=== PATIENT | male | born 1995 | race Caucasian/White ===

== ENCOUNTER → 2017-05-26 11:35 | Outpatient (CLI) | payer OTHER, SELFPAY | LOC: PSN 11:38 → LAB 11:52 | PROVIDERS: Family Provider Family Medicine; PCP Family Medicine; Visit Provider Nurse Practitioner Acute Care | DX: R07.9 Chest pain, unspecified (principal) | CPT/HCPCS: 87081 ==

== ENCOUNTER → 2017-05-28 07:48 | Outpatient (CLI) | payer OTHER, SELFPAY ==
--- NOTE | 2017-05-30 11:18 | PFT ---
INTRODUCTION: The patient is a 21-year-old male currently under the care of myself the presents for pulmonary function testing secondary to a diagnosis of pleurodynia. Respiratory therapy reports that the patient had difficulty exhaling for 6 seconds. Bronchodilators were used during testing. INTERPRETATION: Forced expiration spirometry demonstrates no evidence of a large airways obstructive ventilatory defect. There was no significant response to aerosolized bronchodilators. Spirograms are of poor quality and do not meet the 6 second exhalation criteria, likely underestimating FVC. The respiratory flow volume loop appears normal. Body plethysmography was performed and reveals a decreased TLC to 6.19 L, 83% of predicted, indicative of a mild restrictive ventilatory defect. The remainder of the lung volumes are within normal limits. The airway resistance is within normal limits. Diffusing capacity by single breath CO is within normal limits. IMPRESSION: These pulmonary function studies demonstrate the presence of an isolated mild restrictive ventilatory defect. There are no previous pulmonary function studies available for comparison.
== END ==
PROVIDERS: Family Provider Family Medicine; PCP Family Medicine; Visit Provider Internal Medicine Critical Care Medicine
DX: R07.81 Pleurodynia (principal)
CPT/HCPCS: 94060; 94726; 94729

== ENCOUNTER → 2017-06-13 14:22 | Outpatient (CLI) | payer OTHER, SELFPAY ==
[2017-06-13 15:21] LABS: Hematocrit 44.9 % (40-54); Hemoglobin 15.1 g/dl (13.0-16.5); Mean Corp Hgb Conc 33.6 g/gl (32-36); Mean Corpuscular Hgb 28.9 pg (27.0-32.0); Mean Platelet Vol. 10.2 fl (6.2-12.0); Platelet Count 148 K/mm3 (150-450); RBC Distribution Width CV 13.1 % (11.6-14.6); RBC Distribution Width SD 41.3 fl (35.1-43.9); Red Blood Count 5.22 M/mm3 (4.6-6.2); White Blood Count 5.2 K/mm3 (4.4-11.0)
[2017-06-13 15:28] LABS: Scan Indicated on CBC? Y/N NO
[2017-06-13 15:52] LABS: Rheumatoid Factor < 10.0 IU/mL (<15)
[2017-06-13 17:24] LABS: Erythrocyte Sedimentation Rate 2 mm/hr (0-15)
[2017-06-19 03:07] LABS: Cytoplasmic Ab (C-ANCA) <1:20 titer (Neg:<1:20); Immunoglobulin E 8 IU/mL (0-100)
[2017-06-19 09:21] LABS: CCP IgG Antibodies 5 units (0-19); Immunoglobulin G 895 mg/dL (700-1600); Perinuclear Ab (P-ANCA) <1:20 titer (Neg:<1:20)
== END ==
PROVIDERS: Family Provider Family Medicine; PCP Family Medicine; Visit Provider Nurse Practitioner Acute Care
DX: R07.81 Pleurodynia (principal)
CPT/HCPCS: 36415; 82784; 82785; 85027; 85652; 86140; 86200; 86256; 86431

== ENCOUNTER → 2017-08-29 13:44 | Outpatient (CLI) | payer OTHER, SELFPAY ==
--- NOTE | 2017-08-29 13:49 | CT_ITS ---
STUDY: CT CHEST WITH CONTRAST REASON FOR EXAM: Male, 21 years old. Chest pain. RADIATION DOSAGE (If Supplied By Facility): CTDIvol = ( 11.80 ) mGy, DLP = ( 423.30 ) mGycm TECHNIQUE: Transaxial imaging was performed following intravenous administration of 100ml ml of Isovue 300 contrast material. Individualized dose optimization techniques were used for this CT. COMPARISON: None. FINDINGS: The lungs are normal. 1.2 cm calcified granuloma in the posterior left lung base. There is no demonstrated pleural abnormality. Normal heart and pericardium. Normal mediastinum. Prominent calcified granulomas left hilum. Normal enhanced pulmonary arteries. Normal aorta arch and descending thoracic aorta. Normal osseous structures. No fractures. There is no demonstrated abnormality of the visualized upper abdomen. CT/Chest WITH Contrast IMPRESSION: Old granulomatous disease. No acute abnormality. Electronically Signed: Beto Alfaro MD at 21:59 EDT , Service support ,
== END ==
PROVIDERS: Family Provider Family Medicine; PCP Family Medicine; Visit Provider Internal Medicine Critical Care Medicine
DX: R07.9 Chest pain, unspecified (principal)
CPT/HCPCS: 71260

== ENCOUNTER → 2017-09-10 09:42 | Outpatient (CLI) | payer OTHER, SELFPAY ==
[2017-09-10 10:58] LABS: Absolute Lymphocyte Count 2.41 X10^3/ul (0.83-4.51); Absolute Neutrophil Count 3.7 X10^3/uL (2.0-7.7); Basophil# 0.05 X10^3/uL; Basophil% 0.7 % (0-1); Eosinophil# 0.15 X10^3/uL; Eosinophils% 2.2 % (0-5); Hematocrit 46.6 % (40-54); Hemoglobin 15.9 g/dl (13.0-16.5); Lymphocyte # 2.41 X10^3/ul (4.0); Lymphocyte % 34.6 % (19-41); Mean Corp Hgb Conc 34.1 g/gl (32-36); Mean Corpuscular Hgb 28.8 pg (27.0-32.0); Mean Corpuscular Volume 84.4 fL (80-94); Mean Platelet Vol. 10.7 fl (6.2-12.0); Monocyte# 0.63 X10^3/uL; Neutrophil # 3.71 X10^3/uL (2.7-7.7); Neutrophil % 53.2 % (47-70); Platelet Count 231 K/mm3 (150-450); RBC Distribution Width CV 13.1 % (11.6-14.6); RBC Distribution Width SD 40.7 fl (35.1-43.9); Red Blood Count 5.52 M/mm3 (4.6-6.2)
[2017-09-10 11:00] LABS: POSITIVE COUNT NO; POSITIVE DIFFERENTIAL NO; POSITIVE MORPHOLOGY NO
[2017-09-10 11:30] LABS: ALB/GLOB Ratio 1.1 RATIO (0.9-2.4); AST(SGOT) 17 U/L (15-37); Alanine Aminotransfer ALT/SGPT 39 U/L (16-61); Albumin, Serum 4.1 g/dL (3.2-5.0); Alkaline Phosphatase 92 U/L (45-117); Anion Gap 9 (5-15); BUN 18 mg/dL (7-18); BUN/Creat Ratio 19.2 RATIO (10-20); Calcium,Total 9.3 mg/dL (8.5-10.1); Chloride 107 mmol/L (98-107); Creatinine, Serum 0.94 mg/dL (0.70-1.30); EST Glomerular Filtration Rate 108 mL/min (>60); Est Glom Filt Rate - Afr Amer 131 mL/min (>60); Globulin 3.7 g/dL (2.2-4.2); Glucose 94 mg/dL (74-106); Protein, Total 7.8 g/dL (6.4-8.2); Sodium Level 141 mmol/L (136-145)
[2017-09-10 12:29] LABS: HIV - WCH Non-Reactive (Nonreactive)
[2017-09-14 03:06] LABS: HEPATITIS B SURFACE AG Negative (Negative); Hepatitis A AB, Total Negative (Negative); Hepatitis A IgM Antibody Negative (Negative); Hepatitis B Core AB IgM Negative (Negative); Hepatitis B Core Ab Total Negative (Negative); Hepatitis C Ab <0.1 s/co ratio (0.0-0.9); QNTFERON TB Ag Minus Nil Value 0.11 IU/mL (.); QNTFERON TB Ag Value 0.14 IU/mL (.); QNTFERON TB Mitogen Value > 10.00 IU/mL (.); QNTFERON TB Nil Value 0.03 IU/mL (.)
[2017-09-14 08:48] LABS: Hep B Surface Antibodies Non Reactive (.); QNTIFERON TB Gold Negative (Negative)
== END ==
PROVIDERS: Family Provider Family Medicine; PCP Family Medicine; Visit Provider Internal Medicine Critical Care Medicine
DX: J84.10 Pulmonary fibrosis, unspecified (principal); L40.0 Psoriasis vulgaris
CPT/HCPCS: 36415; 80053; 85025; 86480; 86703; 86704; 86705; 86706; 86708; 86709; 86803; 87340; 87385

== ENCOUNTER → 2017-10-13 16:38 | Outpatient (CLI) | payer OTHER, SELFPAY ==
[2017-10-17 03:06] LABS: QNTFERON TB Ag Minus Nil Value 0 IU/mL (.); QNTFERON TB Ag Value 0.03 IU/mL (.); QNTFERON TB Mitogen Value > 10.00 IU/mL (.); QNTFERON TB Nil Value 0.03 IU/mL (.)
[2017-10-17 11:56] LABS: QNTIFERON TB Gold Negative (Negative)
== END ==
PROVIDERS: Family Provider Family Medicine; PCP Family Medicine; Visit Provider Nurse Practitioner Family
DX: L40.0 Psoriasis vulgaris (principal); Z79.899 Other long term (current) drug therapy
CPT/HCPCS: 36415; 86480